=== PATIENT | male | born 2000 | race Caucasian/White ===

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

== ENCOUNTER 2021-06-22 22:39 | Emergency (ER) | payer OTHER ==
[~2021-06-22] VITALS: Ht 162.6 cm; Wt 72.6 kg
--- NOTE | 2021-06-22 22:58 | NUR ---
PT ASSESSMENT COMPLETED BY RAY. NO NURSING INTERVENTIONS REQUIRED AT THIS TIME.
[2021-06-22 23:01] VITALS: BP 150/60
--- NOTE | 2021-06-22 23:11 | NUR ---
PT AMBULATORY TO CHAIR A W STEADY GAIT.
[2021-06-22] MEDS ORDERED: SULOS OP (23:14)
[2021-06-22] MEDS ORDERED: AMOX1TAB8 PO (23:14)
[2021-06-22 23:20] VITALS: BP 150/60
--- NOTE | 2021-06-22 23:20 | NUR ---
Patient discharged BY ERMD. Rx of AMOXICILLIN/POTASSIUM CLAV, SULDACETAMIDE SODIUM given.
== END 2021-06-22 23:20 | disposition home or self-care (01) ==
LOC: MED 22:39
DX: J02.9 Acute pharyngitis, unspecified (principal); H10.32 Unspecified acute conjunctivitis, left eye; B96.89 Other specified bacterial agents as the cause of diseases classified elsewhere; R59.0 Localized enlarged lymph nodes; Z79.899 Other long term (current) drug therapy; Z79.2 Long term (current) use of antibiotics; Z79.1 Long term (current) use of non-steroidal anti-inflammatories (NSAID)
CPT/HCPCS: 99283